=== PATIENT | male | born 1965 | race Caucasian/White ===

== ENCOUNTER 2017-03-06 11:00 | Day surgery (SDC) | payer BC ==
[~2017-03-06] VITALS: Ht 182.9 cm; Wt 98.0 kg
[2017-03-06] MEDS ORDERED: CIPR500T3 PO ×2 (11:12→17:35)
[2017-03-06] MEDS ORDERED: FLOM5CAP PO (11:12)
[2017-03-06] MEDS ORDERED: ONDA8TAB8 PO (11:12)
[2017-03-06] MEDS ORDERED: NS 1,000 ML IV SCH (11:12)
[2017-03-06] MEDS ORDERED: ZOLO100T PO (11:12)
[2017-03-06] MEDS ORDERED: METOCLOPRAMIDE INJ 10MG/2ML VIAL (J2765) IV ONE (11:15)
[2017-03-06] MEDS ORDERED: MORPHINE 2 MG/ML 1ML SYRINGE IV PRN (12:30)
[2017-03-06] MEDS ORDERED: MORPHINE 4 MG/ML 1ML SYRINGE IV PRN (12:30)
[2017-03-06] MEDS ORDERED: ONDANSETRON 4MG/2ML VIAL (J2405) IV PRN ×2 (12:30→17:45)
[2017-03-06] MEDS ORDERED: KETOROLAC 30 MG/ML VIAL (J1885) IV PRN (12:30)
--- NOTE | 2017-03-06 12:39 | HPEPDOC ---
General Date of Admission Attending Physician: JENNIFER PALACIOS M.D. Chief Complaint The patient is a 52-year-old male admitted with a reason for visit of Flank Pain. Source: Patient, Family Exam Limitations: No limitations Timing/Duration: Week(s), Constant, Getting worse Severity: Severe Associated Symptoms: Loss of appetite, Nausea, Vomiting History of Present Illness Presented to [facility] ED with severe left flank and abdominal pain with associated nausea and vomiting. No fevers documented. CT showed 4mm left UVJ Stone with hydronephrosis. Has had 4mm stone since Week of January 29 2017, this is his third ED presentation with similar symptoms. No previous hx of nephrolithiasis. Transferred to [facility] ER. Pain unable to be controlled with IV medications. WBC normal and UA negative for infection. Home Medications Scheduled Ciprofloxacin HCl (Ciprofloxacin HCl) 500 Mg Tab, 500 MG PO BID, (Reported) Sertraline Hcl (Zoloft) 100 Mg Tab, 100 MG PO QHS, (Reported) Tamsulosin Hydrochloride (Flomax) 0.4 Mg Cap, 0.4 MG PO BID, (Reported) Scheduled PRN Ondansetron (Ondansetron Odt) 8 Mg Tab, 8 MG PO Q6HP PRN for NAUSEA, (Reported) Allergies Coded Allergies: No Known Allergies (Verified , 05/26/05) Past Medical History Medical History Pancreatic divisum Surgical History ERCP Family History Significant Family History: No pertinent family hx Social History Alcohol: sober Drugs: denies Psychosocial History: Depression Review of Symptoms Constitutional: Reports: Chills, Fever, Malaise, Night Sweats, Weakness, Fatigue, Weight Loss, Lethargy, Other Gastrointestinal: Reports: Nausea, Vomiting, Abdominal Pain Physical Examination General Exam: Positive: Alert, Cooperative, No Acute Distress, Mild Distress, Moderate Distress, Severe Distress, Other Eye Exam: Positive: PERRLA ENT Exam: Positive: Atraumatic Chest Exam: Positive: Clear to auscultation Heart Exam: Positive: Rate Normal Abdomen Exam: Positive: Normal bowel sounds, Soft Extremity Exam: Positive: Clubbing Skin Exam: Positive: Nl turgor and temperature Vital Signs Vital Signs Date Time Temp Pulse Resp B/P (MAP) Pulse Ox O2 Delivery O2 Flow Rate FiO2 03/06/17 11:51 03/06/17 11:04 60 18 163/93 97 Room Air Laboratory Data Labs 24H Vital Signs Date Time Temp Pulse Resp B/P (MAP) Pulse Ox O2 Delivery O2 Flow Rate FiO2 03/06/17 11:51 03/06/17 11:04 60 18 167/85 (112) 97 Room Air Current Medications Medications (Trade) Dose Ordered Sig/Desiree Route PRN Reason Start Time Stop Time Status Last Admin Dose Admin Sodium Chloride 1,000 ml @ 100 mls/hr Q10H IV 03/06/17 11:12 04/05/17 11:11 03/06/17 11:50 100 MLS/HR CBC/BMP WBC 7.0 Hgb 14.02 Plat 142 Creat 1.01 BUN 27 Glucose 134 UA WBC Rare LE Trace Nitrite- Negative Assessment/Plan 52 year old M with 4mm Left UVJ Stone with severe hydronephrosis and recurrent pain not controlled with IV pain medication. Discussed with him various treatment options including OR for Stent placement and subsequent lithotripsy at a later date. He would like to proceed with Cysto and Left Stent placement given persistent pain and nausea and vomiting 1. OR for Cysto and Left Stent placement 2. NPO/IVF 3. IV antibiotics information scientist for OR Plan / VTE VTE Prophylaxis Ordered?: Yes VTE Exclusion Mechanical Proph: Low Risk for VTE Plan Diet: Make JENNIFER JAVIER M.D. Mar 06, 2017 12:29
[2017-03-06] MEDS ORDERED: ACETAMINOPHEN TAB 650MG DOSE (2X325MG) PO ONE (13:00)
[2017-03-06 14:20] VITALS: BP 156/87
[2017-03-06] MEDS ORDERED: CONRAY-60 60% 50ML VIAL (Q9961) As Ordered ONE (16:35)
[2017-03-06] MEDS ORDERED: MIDAZOLAM INJ 2 MG/2 ML VIAL (J2250) As Ordered ONE (16:47)
[2017-03-06] MEDS ORDERED: LIDOCAINE 2% INJ 100 MG/5 ML SDV (FOR ANES.) As Ordered ONE (16:47)
[2017-03-06] MEDS ORDERED: PROPOFOL 200 MG/20 ML VIAL As Ordered ONE (16:47)
[2017-03-06] MEDS ORDERED: fentaNYL 100 MCG/2 ML INJECTION (J3010) As Ordered ONE (16:48)
[2017-03-06] MEDS ORDERED: ceFAZolin 2 GM/D5W 50 ML IV BAG (J0690) As Ordered ONE (16:48)
[2017-03-06] MEDS ORDERED: dexameTHASONE 4 MG/ML 1ML VIAL (J1100) As Ordered ONE (17:00)
[2017-03-06] MEDS ORDERED: KETOROLAC 60 MG/2 ML VIAL (J1885) As Ordered ONE (17:00)
[2017-03-06] MEDS ORDERED: ONDANSETRON 4MG/2ML VIAL (J2405) As Ordered ONE (17:00)
[2017-03-06] MEDS ORDERED: PHENYLephrine HCL 500 MCG/5 ML (100MCG/ML) SYRINGE (J2370) As Ordered ONE (17:01)
[2017-03-06] MEDS ORDERED: ePHEDrine SULFATE 25 MG/5 ML(5MG/ML) SYRINGE As Ordered ONE (17:01)
[2017-03-06] MEDS ORDERED: fentaNYL 100 MCG/2 ML INJECTION (J3010) IV PRN (17:45)
[2017-03-06] MEDS ORDERED: LR 1,000 ML IV SCH (17:45)
[2017-03-06 20:30] VITALS: BP 124/66
--- NOTE | 2017-03-07 07:44 | RO ---
DATE OF PROCEDURE: 03/06/2017 PREOPERATIVE DIAGNOSIS: Obstructing left ureteral calculus. POSTOPERATIVE DIAGNOSIS: Obstructing left ureteral calculus. PROCEDURE: Cystoscopy. Left retrograde pyelography with intraoperative interpretation. Left ureteral stent placement. SURGEON: Kuldip Wong MD BEEF GRINDER: None. ANESTHESIA: General, laryngeal mask airway (LMA). ESTIMATED BLOOD LOSS: Minimal. FLUIDS: Crystalloid. SPECIMENS: None. DRAINS: 6 Israeli Cook left ureteral stent. COMPLICATIONS: None. CONDITION: Stable to postanesthesia care unit (PACU). INDICATIONS FOR PROCEDURE: The patient is a very pleasant male who presented to an outside hospital earlier today with severe left sided flank pain. This pain had recurred and he was initially found to have a 4 mm ureteral stone. This was his third ED admission for the same type of pain and despite adequate IV pain control, the patient had persistent pain as well as nausea and vomiting. At that point, the patient was transferred to [facility], given that they did not have urology coverage at their location. Upon arrival to our hospital, the patient was stabilized and counseled regarding his options, and given the persistent pain as well as nausea and vomiting, we decided to proceed to the operating room for a cystoscopy and left ureteral stent placement. DESCRIPTION OF PROCEDURE: The patient was identified in the preoperative holding area as himself. Informed consent was obtained. After the risks, benefits and alternatives were discussed, he was transferred to the operating room, assisted onto the operating room table, and preoperative antibiotics were administered. He was then prepped and draped in a standard sterile fashion. A 21 Israeli rigid cystoscope was gently entered into the bladder. Cystoscopy was performed. He had slight enlargement of his median lobe. Otherwise there were no bladder lesions identified. A 0.38 Guidewire was then placed in he left ureteral orifice, carried up to the level of the left kidney. A #5 Israeli open ended catheter was then placed. A retrograde pyelogram was performed. There was evidence of hydronephrosis, but no evidence of extravasation. Following that, a #6 Israeli Cook ureteral stent was placed on the left side. A proximal curl was noted to be in the upper pole and the distal curl confirmed to be within the bladder. The patient's bladder was then emptied. He was transferred to the PACU in stable condition. There was no apparent complications.
--- NOTE | 2017-03-07 10:18 | REP ---
Clinical: Left stent placement. Technique: Retrograde pyelogram. Findings: Single intraoperative fluoroscopic image demonstrates left hydronephrosis and a left ureteral stent extending from the left upper quadrant to the pelvis. Total fluoroscopic time 18 seconds. Impression: Left ureteral stent. Underlying hydronephrosis suggested. Signed by Joby Cuellar MD 03/07/2017 10:09 A
--- NOTE | 2017-03-08 08:31 | ECGEPIP ---
Stationary ECG Study [facility] - ED Test Date: 2017-03-06 Pat Name: ADAN COLIN Department: Room: - Gender: M Folder Hand: geovany : 1965 Requested By: JENNIFER Nicolas Order Number: [id number] Reading MD: Joel Chen Measurements Intervals [place] Rate: 55 P: 59 MS: 178 QRS: 65 QRSD: 102 T: 38 QT: 416 QTc: 400 Interpretive Statements SINUS BRADYCARDIA POSSIBLE LEFT ATRIAL ENLARGEMENT POSSIBLE INCOMPLETE RIGHT BUNDLE BRANCH BLOCK NO PRIORS FOR COMPARISON Electronically Signed On 03-08-2017 8:30:41 EST by Joel Chen
== END 2017-03-06 20:43 | disposition home or self-care (01) ==
LOC: M ED 11:00 → M SDC 12:47 → M MS5PR 14:29 → M SDC 20:43
PROVIDERS: ATTEND Urology
DX: N13.1 Hydronephrosis with ureteral stricture, not elsewhere classified (principal); R11.2 Nausea with vomiting, unspecified; Q45.3 Other congenital malformations of pancreas and pancreatic duct; F32.9 Major depressive disorder, single episode, unspecified; Z79.2 Long term (current) use of antibiotics; Z79.899 Other long term (current) drug therapy; F17.220 Nicotine dependence, chewing tobacco, uncomplicated
CPT/HCPCS: 52332; 74420; 93005; 96374; 99284; C1769; C2617; J0690; J1100; J1885; J2250; J2370; J2405; J2765; J3010; Q9961

== ENCOUNTER 2023-10-11 13:09 | Emergency (ER) | payer BC ==
[~2023-10-11] VITALS: Ht 182.9 cm; Wt 115.8 kg
[~2023-10-11 13:09] MED LIST: CIPR500T3 PO; FLOM0.4C39 PO; ONDA-284 PO; ZOLO100T PO
[2023-10-11] MEDS ORDERED: DILT30TA PO (13:20)
[2023-10-11] MEDS ORDERED: ELIQ5TAB PO (13:20)
[2023-10-11 14:34] LABS: BASO % 0.4 % (0.0-1.0); EOS # 0.1 10^3/uL (0.0-0.5); EOS % 1.6 % (0.0-3.0); HEMATOCRIT 44.6 % (42.0-52.0); HEMOGLOBIN 15.3 g/dl (13.5-17.5); LYMPH % 11.7 % (24.0-44.0); MEAN CORPUSCULAR HEMOGLOBIN 32.5 pg (27.0-33.0); MEAN CORPUSCULAR HGB CONC 34.3 g/dl (32.0-36.5); MEAN CORPUSCULAR VOLUME 94.7 fl (80.0-96.0); MONO # 0.7 10^3/uL (0.0-0.8); MONO % 8.4 % (2.0-8.0); NEUTROPHILS # 6.5 10^3/uL (1.5-8.5); NEUTROPHILS % 77.8 % (36.0-66.0); PLATELET COUNT, AUTOMATED 172 10^3/uL (150-450); RED BLOOD COUNT 4.71 10^6/uL (4.30-6.10); WHITE BLOOD COUNT 8.3 10^3/uL (4.0-10.0)
[2023-10-11 16:24] LABS: ALBUMIN 3.5 G/DL (3.2-5.2); ALKALINE PHOSPHATASE 64 U/L (46-116); ALT/SGPT 16 U/L (7.0-40); AST/SGOT 28 U/L (<34); BILIRUBIN,DIRECT 0.3 MG/DL (<0.4); BILIRUBIN,TOTAL 1.5 MG/DL (0.3-1.2); BLOOD UREA NITROGEN 22 MG/DL (9-23); CALCIUM LEVEL 8.7 MG/DL (8.5-10.1); CARBON DIOXIDE LEVEL 25 MMOL/L (20-31); CHLORIDE LEVEL 103 MMOL/L (98-107); CK-MB VALUE MASS < 1.0 NG/ML (<3.6); CPK CREATINE PHOSPHOKINASE 44 U/L (46-171); CREATININE FOR GFR 0.81 MG/DL (0.70-1.30); FREE T4 0.97 NG/DL (0.89-1.76); GLOMERULAR FILTRATION RATE > 60.0 (>56); GLUCOSE, FASTING 96 MG/DL (60-100); LIPASE 22 U/L (12-53); MB/CK RELATIVE INDEX 2.27 (< OR =4); SODIUM LEVEL 135 MMOL/L (136-145); THYROID STIMULATING HORMONE 1.438 uIU/ML (0.55-4.78); TOTAL PROTEIN 6.7 G/DL (5.7-8.2)
[2023-10-11] MEDS ORDERED: ESOM40CA35 PO (16:49)
[2023-10-11] MEDS ORDERED: HOME MED LIST COMPLETE! XX SCH (16:50)
[2023-10-11 17:37] LABS: CK-MB VALUE MASS < 1.0 NG/ML (<3.6); CPK CREATINE PHOSPHOKINASE 39 U/L (46-171); MB/CK RELATIVE INDEX 2.56 (< OR =4)
[2023-10-11] MEDS ORDERED: COLC0.6T47 PO (19:01)
[2023-10-11 19:31] VITALS: BP 134/85
[2023-10-11] MEDS: COLCHICINE 0.6 MG TABLET PO ONE (19:38)
[2023-10-11 19:45] VITALS: TEMP 97.9; O2SAT 96
== END 2023-10-11 19:54 | disposition home or self-care (01) ==
LOC: M ED 13:09
DX: R07.9 Chest pain, unspecified (principal); I48.91 Unspecified atrial fibrillation; F32.A Depression, unspecified; Z87.442 Personal history of urinary calculi; Z86.79 Personal history of other diseases of the circulatory system; Z79.01 Long term (current) use of anticoagulants; Z79.899 Other long term (current) drug therapy